=== PATIENT | female | born 1995 | race Caucasian/White ===

== ENCOUNTER → 2017-03-10 13:01 | Outpatient (CLI) | payer BC, SELFPAY ==
--- NOTE | 2017-03-10 13:05 | US_ITS ---
US OB /maternal detail: INDICATION: ITS.REASON: US OB Complete ORDERING PHYSICIAN: Haresh Nina MD PATIENT AGE: 21 years TECHNIQUE: ultrasound transabdominal scanning. COMPARISON: No previous relevant studies. FINDINGS: Single viable intrauterine gestation. breech position. Placenta: posterior placenta grade 1. There is average amount fluid. The cervix appears satisfactory. Closed and measuring 3.5 cm in length. Complete survey performed and was unremarkable on the submitted images as in PACS. No discrete anomalies identified on survey imaging by technologist. Active fetus. Three-vessel cord with satisfactory umbilical cord insertion. 4- chamber heart noted. Survey of brain & ventricles. Face and neck survey unremarkable. Diaphragm and chest views unremarkable. Abdomen: Both kidneys noted and unremarkable. Stomach noted and satisfactory. Spine: Survey of the spine satisfactory with no anomalies identified nor imaged. Both arms and legs noted. Amniotic Fluid: Adequate. Maternal adnexa: No significant findings. Measurements: Average ultrasound age 21w0d. Gestational Age 20w1d. Estimated due date by ultrasound age 0607/21/2017. Estimated weight 375 grams. This is 79th percentile based on last menstrual period BPD = 21w1d OFD = 21w5d HC = 20w5d AC = 20w6d FL = 20w6d Heart Rate = 150 Cerebellum = 20w0d Humerus = 21w4d HC/AC is 1.17 (1.09-1.26). CI is 77% (70-86%). FL/BPD is 68%. FL/AC is 22%. IMPRESSION: Single live fetus in breech presentation with average ultrasound age of 21 weeks and 0 days. No obvious anomalies. Posterior placenta. Please see above for detail.
== END ==
PROVIDERS: Family Provider Family Medicine; PCP Family Medicine; Visit Provider Nurse Practitioner Obstetrics & Gynecology
DX: Z36.0 Encounter for antenatal screening for chromosomal anomalies (principal)
CPT/HCPCS: 76811

== ENCOUNTER 2017-05-02 08:13 | Outpatient (CLI) | payer BC, SELFPAY | END 2017-05-02 10:30 | disposition home or self-care (01) | LOC: LAB 08:14 | PROVIDERS: Visit Provider Nurse Practitioner Obstetrics & Gynecology | DX: Z34.90 Encounter for supervision of normal pregnancy, unspecified, unspecified trimester (principal) | CPT/HCPCS: 36415; 96372; J2790 ==

== ENCOUNTER 2017-05-05 13:26 | Emergency (ER) | payer BC, SELFPAY ==
[2017-05-05 13:47] VITALS: BP 139/86; PULSE 88; RESP 20; TEMP 36.6; O2SAT 96; BMI 26.6
[2017-05-05 14:01] VITALS: BP 139/86; PULSE 88; RESP 20; TEMP 36.6
--- NOTE | 2017-05-05 14:13 | HMH.EDUTC ---
[facility] [place]ression: Bug bite Qualifiers: Encounter type: initial encounter Qualified Code(s): W57.XXXA - Bitten or stung by nonvenomous insect and other nonvenomous arthropods, initial encounter Disposition: Home, Self-Care Condition on Discharge: Good Instructions: DI for Insect Bites and Stings, Insect Bites and Stings (Alternative Therapy) Additional Instructions: Over the counter Bacitracin, or triple antibiotic ointment on area if needed Watch area for worsening and if you notice it begins to have worsening of redness, swelling streaks or fever or other signs of infection go straight to ER or Family doctor REturn if needed Follow up with OBGYN Referrals: Collin Lassiter MD [Primary Care Provider] - Time of Disposition: 14:23 Medical Decision Making - Medical Records Medical records reviewed: Yes: I reviewed the patient's medical records. - Juno Inquiry Pt receiving controlled substance: No Juno was queried for this patient: No Vital Signs: 05/05/17 13:47 05/05/17 14:01 Temperature 97.8 F 97.8 F Temperature Source Temporal Artery Scan Pulse Rate 88 Pulse Rate [Right] 88 Respiratory Rate 20 20 Blood Pressure 139/86 Blood Pressure [Right Arm] 139/86 Blood Pressure Mean [Right Arm] 103 Blood Pressure Source [Right Arm] Automatic Cuff Blood Pressure Position [Right Arm] Sitting 02 Sat by Pulse Oximetry 96 Oxygen Delivery Method Room Air [facility] [place] - General Stated complaint: bug bite on right arm 28 weeks Time Seen by Provider: 05/05/17 14:00 Mode of Arrival: Ambulatory Source of Information: Patient Limitations: No Limitations Description of Symptoms (Recalled from Triage Doc. by RN): STATES BUG BITE TO RIGHT ARM HEENT Symptoms (Recalled from RN notes): No Resp Symptoms (Recalled from RN notes): No Skin Symptoms (Recalled from RN notes): Yes MS Symptoms (Recalled from RN notes): No Functional Status (Recalled from RN notes): N - History of Present Illness Provider Complaint: Patient state that she is 28 weeks OB State that when she woke up this morning she noticed what looked like a bug bite on her right upper arm States that she was worried and wanted to come in and have it looked at because earlier it popped and pus ran out of it and now it is scabbed over - Related Data Previous Rx's Medication Instructions Recorded ferrous sulfate 325 mg (65 mg 325 mg PO DAILY #30 tab 02/24/17 iron) tablet 1 tab PO QDAY #30 each 02/24/17 vitamin,calcium,wdqdsyvq-fuun-mdplv acid tablet Allergies Allergy/AdvReac Type Severity Reaction Status Date / Time From GLUTEN (FOOD/DRUG) Allergy Intermediate VOMITING/DI Uncoded 01/25/17 15:03 ARRHEA - Worker's Comp Is this a Worker's Comp case?: No H History I have reviewed the patient's past medical history: Yes Comment: IBS, Celiac, Menstrual Pain, menorrahagia Other Surgeries: Yes: No Previous Surgery Amputation: No Fractures: No - Social History Smoking Status: Never smoker Alcohol Intake: never Substance Use Type: denies use - Psychiatric History Expresses thoughts of harming self/others: None Suicide Plan Description: No Plan Family Hx:: Hypertension, Heart Attack, Cancer Comment: Hx of Chemical dependency, arthritis ROS Obtained: Yes All systems reviewed & no additional complaints - Allergic/Immunologic Comments: Bug/spider bite on right upper arm Physical Exam - General General appearance: alert, in no apparent distress - Respiratory Respiratory exam: Present: normal lung sounds bilaterally. Absent: respiratory distress - Cardiovascular Cardiovascular exam: Present: regular rate, normal rhythm. Absent: JVD - Abdominal Exam Abdominal exam: Present: soft, normal bowel sounds. Absent: distention, tenderness, guarding - Expanded Upper Extremity Exam Right Shoulder exam: Present: full ROM, other (small area on right upper arm that appea
--- NOTE | 2017-05-05 14:17 | ED_ITS ---
[facility] – [place] Disposition Clinical Impression: Bug bite Qualifiers: Encounter type: initial encounter Qualified Code(s): W57.XXXA - Bitten or stung by nonvenomous insect and other nonvenomous arthropods, initial encounter Disposition: Home, Self-Care Condition on Discharge: Good Instructions: DI for Insect Bites and Stings, Insect Bites and Stings ( Alternative Therapy) Additional Instructions: Over the counter Bacitracin, or triple antibiotic ointment on area if needed Watch area for worsening and if you notice it begins to have worsening of redness, swelling streaks or fever or other signs of infection go straight to ER or Family doctor REturn if needed Follow up with OBGYN Referrals: Collin Lassiter MD [Primary Care Provider] - Time of Disposition: 14:23 Medical Decision Making - Medical Records Medical records reviewed: Yes: I reviewed the patient's medical records. - Juno Inquiry Pt receiving controlled substance: No Juno was queried for this patient: No Vital Signs: 05/05/17 13:47 05/05/17 14:01 Temperature 97.8 F 97.8 F Temperature Source Temporal Artery Scan Pulse Rate 88 Pulse Rate [Right] 88 Respiratory Rate 20 20 Blood Pressure 139/86 Blood Pressure [Right Arm] 139/86 Blood Pressure Mean [Right Arm] 103 Blood Pressure Source [Right Arm] Automatic Cuff Blood Pressure Position [Right Arm] Sitting 02 Sat by Pulse Oximetry 96 Oxygen Delivery Method Room Air [facility] [place] HPI - General Stated complaint: bug bite on right arm 28 weeks Time Seen by Provider: 05/05/17 14:00 Mode of Arrival: Ambulatory Source of Information: Patient Limitations: No Limitations Description of Symptoms (Recalled from Triage Doc. by RN): STATES BUG BITE TO RIGHT ARM HEENT Symptoms (Recalled from RN notes): No Resp Symptoms (Recalled from RN notes): No Skin Symptoms (Recalled from RN notes): Yes MS Symptoms (Recalled from RN notes): No Functional Status (Recalled from RN notes): N - History of Present Illness Provider Complaint: Patient state that she is 28 weeks OB State that when she woke up this morning she noticed what looked like a bug bite on her right upper arm States that she was worried and wanted to come in and have it looked at because earlier it popped and pus ran out of it and now it is scabbed over - Related Data Previous Rx's Medication Instructions Recorded ferrous sulfate 325 mg (65 mg 325 mg PO DAILY #30 tab 02/24/17 iron) tablet 1 tab PO QDAY #30 each 02/24/17 vitamin,calcium,npqcdqts-bhiz-mrnid acid tablet Allergies Allergy/AdvReac Type Severity Reaction Status Date / Time From GLUTEN (FOOD/DRUG) Allergy Intermediate VOMITING/DI Uncoded 01/25/17 15:03 ARRHEA - Worker's Comp Is this a Worker's Comp case?: No H History I have reviewed the patient's past medical history: Yes Comment: IBS, Celiac, Menstrual Pain, menorrahagia Other Surgeries: Yes: No Previous Surgery Amputation: No Fractures: No - Social History Smoking Status: Never smoker Alcohol Intake: never Substance Use Type: denies use - Psychiatric History Expresses thoughts of harming self/others: None Suicide Plan Description: No Plan Family Hx:: Hypertension, Heart Attack, Cancer Comment: Hx of Chemical dependency, arthritis ROS Obtained: Yes All
== END 2017-05-05 14:33 | disposition home or self-care (01) ==
PROVIDERS: Emergency Provider Nurse Practitioner; Family Provider Family Medicine; PCP Family Medicine
DX: S40.861A Insect bite (nonvenomous) of right upper arm, initial encounter (principal); W57.XXXA Bitten or stung by nonvenomous insect and other nonvenomous arthropods, initial encounter; Z3A.28 28 weeks gestation of pregnancy
CPT/HCPCS: 99201

== ENCOUNTER 2017-06-27 13:01 | Outpatient (CLI) | payer OTHER, SELFPAY ==
[2017-06-27 13:18] VITALS: BP 137/78; PULSE 90; RESP 16; TEMP 37.1; O2SAT 98; BMI 32.5
[2017-06-27 13:49] LABS: Appearance,Urine CLOUDY (Clear); Bilirubin,Urine Negative (Negative); Blood, Urine Negative (Negative); Color,Urine YELLOW (Yellow); Glucose,Urine (UA) Negative (Negative); Ketones,Urine Negative (Negative); Leukocyte Esterase,Urine 1+ (Negative); Microscopic, Urine URINE MICROSCOPIC (MICROSCOPIC); Nitrate,Urine Negative (Negative); Protein,Urine Negative (Negative); Urobilinogen,Urine 0.2 EU/dl (0.2)
[2017-06-27 14:00] LABS: Bacteria,Urine 4+ /lpf; Squamous Epithelial Cell,Urine 20-50 #/hpf (0-5); WBC,Urine 20-50 #/hpf (0-3)
--- NOTE | 2017-06-27 16:08 | HMH.ACPN2 ---
Internal Medicine - PN: Subj *Date: 06/27/17 *Time: 16:08 Interval history: She is a 21-year-old 1 para 0 who was 35+ weeks gestational age. She began having some lower abdominal pain when she woke up this morning. She is an otherwise healthy lady and has an otherwise healthy lady and has had an UNcomplicated to now. Is having a few contractions on the monitor and the nonstress test is reactive. Exam Vital signs and Labs for Last 24 Hours: Temp Pulse Resp BP Pulse Ox 98.7 F 90 16 137/78 98 06/27/17 13:18 06/27/17 13:18 06/27/17 13:18 06/27/17 13:18 06/27/17 13:18 Laboratory Results - last 24 hr 06/27/17 13:07: Urine Color Yellow, Urine Appearance Cloudy, Urine pH 6.0, Ur Specific [place] 1.010, Urine Protein Negative, Urine Glucose (UA) Negative, Urine Ketones Negative, Urine Blood Negative, Urine Nitrate Negative, Urine Bilirubin Negative, Urine Urobilinogen 0.2, Ur Leukocyte Esterase 1+ A, Urine WBC 20-50, Ur Squamous Epith Cells 20-50, Urine Bacteria 4+ I & O for Last 24 hours: Intake & Output 06/25/17 06/26/17 06/27/17 06/28/17 11:59 11:59 11:59 11:59 Weight 184 lb - Constitutional no acute distress - *Routine HEENT Exam Head: Present: normocephalic - *Routine Abdominal Exam Present: soft Assessment and Plan (1) False labor before 37 completed weeks of gestation Current visit: Yes Status: Acute Category: Medical Code(s): O47.00 - False labor before 37 completed weeks of gestation, unspecified trimester - Assessment and plan all Dx Assessment and Plan for all problems:: We gave her some fluids and Brethine and her contractions have settled. Her cervix is closed and 50% effaced. The presenting part is high. We have an appointment in 48 hours and we will also do an ultrasound to check position of this baby. It may be breech. We will see her in 48 hours. She will go home on bedrest.
== END 2017-06-27 16:13 | disposition home or self-care (01) ==
LOC: OBOUT 13:03 → OB 13:03
PROVIDERS: PCP Nurse Practitioner Obstetrics & Gynecology; Visit Provider Nurse Practitioner Obstetrics & Gynecology
DX: O26.93 Pregnancy related conditions, unspecified, third trimester (principal); Z3A.35 35 weeks gestation of pregnancy; R10.30 Lower abdominal pain, unspecified
CPT/HCPCS: 59025; 81001; 87086; 96360; 96372

== ENCOUNTER → 2017-06-30 18:02 | Outpatient (REF) | payer OTHER, SELFPAY | LOC: LAB 18:02 | PROVIDERS: Visit Provider Nurse Practitioner Obstetrics & Gynecology | DX: Z34.90 Encounter for supervision of normal pregnancy, unspecified, unspecified trimester (principal) | CPT/HCPCS: 86403 ==

== ENCOUNTER 2017-07-14 16:53 | Outpatient (CLI) | payer OTHER, SELFPAY ==
[2017-07-14 17:02] VITALS: BMI 30.9
[2017-07-14 17:27] VITALS: BP 138/85; PULSE 98; RESP 18; TEMP 36.9; O2SAT 99; BMI 34.2
[2017-07-14 18:02] LABS: Amphetamine/Metha Screen,Urine Negative ng/mL (<1000); Barbiturates Screen,Urine Negative ng/mL (<200); Benzodiazepines Screen,Urine Negative ng/mL (200); Cannabinoid Screen,Urine Negative ng/mL (<50); Cocaine Screen,Urine Negative ng/g (<300); Methadone Screen,Urine Negative ng/mL (<300); Opiate Screen,Urine Negative ng/mL (<300); Phencyclidine Screen,Urine Negative ng/mL (<25)
== END 2017-07-14 19:08 | disposition home or self-care (01) ==
LOC: OBOUT 16:54 → OB 16:55
PROVIDERS: PCP Nurse Practitioner Obstetrics & Gynecology; Visit Provider Obstetrics & Gynecology
DX: O60.03 Preterm labor without delivery, third trimester (principal); Z3A.38 38 weeks gestation of pregnancy
CPT/HCPCS: 59025; 80305; 96360

== ENCOUNTER → 2017-07-18 19:10 | Outpatient (CLI) | payer OTHER, SELFPAY ==
[2017-07-18 18:56] LABS: Amphetamine/Metha Screen,Urine Negative ng/mL (<1000); Barbiturates Screen,Urine Negative ng/mL (<200); Benzodiazepines Screen,Urine Negative ng/mL (200); Cannabinoid Screen,Urine Negative ng/mL (<50); Cocaine Screen,Urine Negative ng/g (<300); Methadone Screen,Urine Negative ng/mL (<300); Opiate Screen,Urine Negative ng/mL (<300); Phencyclidine Screen,Urine Negative ng/mL (<25)
== END ==
PROVIDERS: Visit Provider Nurse Practitioner Obstetrics & Gynecology
DX: Z34.90 Encounter for supervision of normal pregnancy, unspecified, unspecified trimester (principal)
CPT/HCPCS: 80305; 80307

== ENCOUNTER 2017-07-19 16:11 | Inpatient (IN) ==
[2017-07-19 16:46] LABS: Microscopic, Urine URINE MICROSCOPIC (MICROSCOPIC)
[2017-07-19 16:50] LABS: Basophils % 0.3 % (0.1-2.0); Eosinophils # 0.1 K/mm3 (0.0-0.4); Eosinophils % 1.1 % (0.1-12.0); Hematocrit 27.8 % (37.0-47.0); Hemoglobin 8.6 g/dL (12.2-16.2); Lymphocytes # 1.7 K/mm3 (0.7-4.5); Lymphocytes % 17.5 K/mm3 (10-50); Mean Corpuscular HGB Conc 30.9 g/dL (31.8-35.4); Mean Corpuscular Volume 80.9 fl (81-99); Mean Platelet Volume 9.3 fl (7.4-10.4); Monocytes # 0.7 K/mm3 (0.1-1.0); Monocytes % 6.7 % (1.7-9.3); Neutrophils # 7.2 K/mm3 (1.8-7.8); Neutrophils % 74.4 % (37.0-80.0); Platelet Count 262 K/mm3 (142-424); Red Blood Count 3.44 M/mm3 (4.20-5.40); Red Cell Distribution Width 15.1 % (11.5-17.5); White Blood Count 9.7 K/mm3 (4.5-13.0)
--- NOTE | 2017-07-19 17:18 | History & Physical Report ---
OB - H&P: HPI Antepartum - History of Present Illness Chief complaint: Elevated blood pressure History of present illness: She is a 21-year-old 1 para 0 who is 38 and 6 weeks gestational age. She was seen in my office yesterday with increased blood pressure. As result of that we plan to deliver her. - History of Present Criteria for establishing EDC:: LMP confirmed by 1st trimester US care: good care Ultrasounds: normal 1st trimester US, normal mid trimester US Obstetrical complications: preeclampsia Medical complications: none [facility] History I have reviewed the patient's past medical history: Yes Medical History: Denies:: Cancer, Diabetes Mellitus Type 1, Diabetes Mellitus Type 2, MRSA Other Surgeries: Yes: No Previous Surgery. No: Amputation: No Fractures: No - *Social History Educational Level: Completed GED/General Educational Development Smoking Status: Former smoker #Yrs smoked (if former smoker): 1 Smoking End Date: 2016 Alcohol Intake: never Substance Use Type: denies use Occupational Status: other Housing: house Household Members: family - Psychiatric History Expresses thoughts of harming self/others: None Suicide Plan Description: No Plan *Family Hx:: Cancer Para: 0 Review of Systems - Review of Systems Review of systems:: pertinent systems reviewed and negative unless documented below Meds Home Medications Medication Instructions Recorded Confirmed Type Ferrous Sulfate [Ferrous Sulfate 325 mg PO DAILY 06/27/17 07/19/17 History 325mg Tablet] Vit Calc,Iron,Folic [Kpn] 1 tab PO QDAY 06/27/17 07/19/17 History Allergies Allergy/AdvReac Type Severity Reaction Status Date / Time gluten Allergy Vomiting Verified 07/18/17 16:21 OB - H&P: Exam - Physical Exam Vital signs: Temp Pulse Resp BP Pulse Ox 98.4 F 82 18 135/90 98 07/19/17 16:32 07/19/17 16:32 07/19/17 16:32 07/19/17 16:32 07/19/17 16:32 - Constitutional no acute distress - Routine HEENT Exam Head: Present: normocephalic - Routine Neck Exam Present: supple - Routine Exam Comments: Her cervix is 1 cm 75% and -1. She is having regular contractions so we will not insert Cervidil at this point in time. We will plan to start oxytocin in the morning. - Routine Psychiatric Exam Present: normal affect OB - Results - Labs Labs: Short CBC 07/19/17 Range/Units 16:30 WBC 9.7 (4.5-13.0) K/mm3 Hgb 8.6 L (12.2-16.2) g/dL Hct 27.8 L (37.0-47.0) % Plt Count 262 (142-424) K/mm3 OB - A/P Antepartum (1) induced hypertension, antepartum Current visit: Yes Status: Acute (2) Rh negative status during Problem details: Rhogam 05/02/17 Current visit: No Status: Acute - Additional Plan Planning to breastfeed?: Yes Plan: induction Additional Information:: She is admitted with slightly elevated blood pressure. We will start oxytocin in the morning. We will plan to deliver her tomorrow.
[2017-07-19 17:36] LABS: Appearance,Urine SL CLOUDY (Clear); Bilirubin,Urine Negative (Negative); Blood, Urine Negative (Negative); Color,Urine YELLOW (Yellow); Glucose,Urine (UA) Negative (Negative); Ketones,Urine Negative (Negative); Leukocyte Esterase,Urine 1+ (Negative); Protein,Urine Negative (Negative); Urobilinogen,Urine 0.2 EU/dl (0.2)
[2017-07-19 17:47] LABS: Bacteria,Urine 4+ /lpf; WBC,Urine 20-50 #/hpf (0-3)
--- NOTE | 2017-07-20 07:26 | Progress Note ---
Labor Note - Subjective: Date: 07/20/17 Time: 07:25 regular contraction - Objective: NST:: Reactive Contractions:: every 2-3 minutes Cervical Dilation:: 2 Effacement:: 50% Station: -1 Membranes: articially ruptured Comment:: Clear fluid - Fetus: Monitoring?: Yes monitoring type:: External - Assessment: Labor progressing?: Yes Cephalopelvic disproportion?: No Patient Problems: All Active Problems induced hypertension, antepartum (Acute) Bug bite (Acute) False labor before 37 completed weeks of gestation (Acute) Rh negative status during (Acute) Positive urine drug screen (Acute) Group B streptococcal carriage complicating (Acute) (Acute) - Plan: Anesthesia for epidural?: No Continue to labor down?: Yes Plan for ?: No Continue to monitor?: Yes Start pushing?: No Comment:: I ruptured her membranes and there was clear fluid. She has changed her cervix overnight. She is now 2 cm. The cervix is very soft.
--- NOTE | 2017-07-20 08:24 | Progress Note ---
[facility] Anesthesia Checklist - Patient Identification Patient Identification: Arm Band, Verbal (Name & ) - Structural Data Admitted From: Inpatient Planned Operative Procedure/s: labor epidural Consent for Planned Operative Procedure(s) Verified: Yes - Chart Verification Results Verified: CBC - Additional verifications Patient : Yes Anesthesia Reactions: No Hx Blood Transfusions: No Blood Transfusion Reaction: No Cephalosporin Allergy: No Previous Colonoscopy: No - Cardiovascular Assessment Heart Sounds: S1 & S2 Pulse Strength: Baseline Pulse Rhythm: Regular - Airway Assessment C-Spine Mobility Assessed: Yes TMJ Mobility Assessed: Yes Dentition: Good Dentition - Neurological Assessment Level of Consciousness: Awake, Alert, Appropriate Hx Seizures: No Numbness or tingling in extremities: No - Anesthesia Plan Anesthesia Risk discussed: Yes Anesthesia Plan: Verified Anesthesia Type: Epidural [facility] Anesthesia HX I have reviewed the patient's past medical history: Yes Medical History: Denies:: Cancer, Diabetes Mellitus Type 1, Diabetes Mellitus Type 2, MRSA Other Surgeries: Yes: No Previous Surgery. No: Amputation: No Fractures: No *Family Hx:: Cancer
[2017-07-20 08:47] LABS: Amphetamine/Metha Screen,Urine Negative ng/mL (<1000); Barbiturates Screen,Urine Negative ng/mL (<200); Benzodiazepines Screen,Urine Negative ng/mL (200); Cannabinoid Screen,Urine Negative ng/mL (<50); Cocaine Screen,Urine Negative ng/g (<300); Methadone Screen,Urine Negative ng/mL (<300); Opiate Screen,Urine Negative ng/mL (<300); Phencyclidine Screen,Urine Negative ng/mL (<25)
--- NOTE | 2017-07-20 09:46 | Progress Note ---
Labor Note - Subjective: Date: 07/20/17 Time: 09:45 regular contraction - Objective: NST:: Reactive Contractions:: every 2-3 minutes Cervical Dilation:: 2 Effacement:: 75% Station: -2 Membranes: articially ruptured - Fetus: Monitoring?: Yes monitoring type:: Internal and External Comment:: I inserted and IUPC. - Assessment: Labor progressing?: Yes Cephalopelvic disproportion?: No Patient Problems: All Active Problems induced hypertension, antepartum (Acute) Bug bite (Acute) False labor before 37 completed weeks of gestation (Acute) Rh negative status during (Acute) Positive urine drug screen (Acute) Group B streptococcal carriage complicating (Acute) (Acute) - Plan: Anesthesia for epidural?: Yes Continue to labor down?: Yes Plan for ?: No Continue to monitor?: Yes Start pushing?: No
--- NOTE | 2017-07-20 13:37 | Progress Note ---
Labor Note - Subjective: Date: 07/20/17 Time: 13:36 regular contraction - Objective: NST:: Reactive Contractions:: every 2-3 minutes Cervical Dilation:: 3 Effacement:: 90% Station: -1 Membranes: articially ruptured - Fetus: Monitoring?: Yes monitoring type:: Internal and External - Assessment: Labor progressing?: Yes Cephalopelvic disproportion?: No Patient Problems: All Active Problems induced hypertension, antepartum (Acute) Bug bite (Acute) False labor before 37 completed weeks of gestation (Acute) Rh negative status during (Acute) Positive urine drug screen (Acute) Group B streptococcal carriage complicating (Acute) (Acute) - Plan: Anesthesia for epidural?: Yes Continue to labor down?: Yes Plan for ?: No Continue to monitor?: Yes Start pushing?: No
--- NOTE | 2017-07-20 15:49 | Progress Note ---
Labor Note - Subjective: Date: 07/20/17 Time: 15:47 regular contraction - Objective: NST:: Reactive Contractions:: every 2-3 minutes Cervical Dilation:: 3 Effacement:: 90% Station: -1 Membranes: articially ruptured - Fetus: Monitoring?: Yes monitoring type:: Internal and External - Assessment: Labor progressing?: No Cephalopelvic disproportion?: No Patient Problems: All Active Problems induced hypertension, antepartum (Acute) Bug bite (Acute) False labor before 37 completed weeks of gestation (Acute) Rh negative status during (Acute) Positive urine drug screen (Acute) Group B streptococcal carriage complicating (Acute) (Acute) - Plan: Anesthesia for epidural?: Yes Continue to labor down?: Yes Plan for ?: No Continue to monitor?: Yes Start pushing?: No Comment:: She really has not changed her cervix in the last couple of hours despite regular contractions. We will continue to see how she does over the next few hours. If she does not change her cervix then we will consider a .
--- NOTE | 2017-07-20 18:01 | Progress Note ---
Labor Note - Subjective: Date: 07/20/17 Time: 18:00 regular contraction - Objective: NST:: Reactive Contractions:: every 2-3 minutes Cervical Dilation:: 3-4 Effacement:: 90% Station: -1 Membranes: articially ruptured - Fetus: Monitoring?: Yes monitoring type:: Internal and External - Assessment: Labor progressing?: Yes Cephalopelvic disproportion?: No Patient Problems: All Active Problems induced hypertension, antepartum (Acute) Bug bite (Acute) False labor before 37 completed weeks of gestation (Acute) Rh negative status during (Acute) Positive urine drug screen (Acute) Group B streptococcal carriage complicating (Acute) (Acute) - Plan: Anesthesia for epidural?: Yes Continue to labor down?: Yes Continue to monitor?: Yes Start pushing?: No Comment:: She has changed her cervix slightly. We will see how she does over the next couple of hours. If she does not change her cervix we will go ahead with a C- section.
--- NOTE | 2017-07-20 20:22 | Progress Note ---
Labor Note - Subjective: Date: 07/20/17 Time: 20:21 regular contraction - Objective: NST:: Reactive Contractions:: every 2-3 minutes Cervical Dilation:: 3 Effacement:: 90% Station: -1 Membranes: articially ruptured - Fetus: Monitoring?: Yes monitoring type:: Internal and External - Assessment: Labor progressing?: No Cephalopelvic disproportion?: Yes Patient Problems: All Active Problems induced hypertension, antepartum (Acute) Bug bite (Acute) False labor before 37 completed weeks of gestation (Acute) Rh negative status during (Acute) Positive urine drug screen (Acute) Group B streptococcal carriage complicating (Acute) (Acute) - Plan: Anesthesia for epidural?: Yes Continue to labor down?: No Plan for ?: Yes Continue to monitor?: Yes Start pushing?: No Comment:: She really has not progressed all afternoon. She continues to be 3 cm 90% and station -1. As result of that we will go ahead with a primary lower segment transverse section. I discussed the risks of surgery with the patient and her boyfriend that includes bleeding, infection, injuries to the bowel and bladder. We discussed the rare risk of DVT and the need for DVT prophylaxis. All questions were answered and consents were signed.
--- NOTE | 2017-07-20 21:51 | Operative Note ---
Date of procedure: 07/20/17 Pre-op Diagnosis:: Mild -induced hypertension, pelvic disproportion, teenage Post-op Diagnosis:: Mild -induced hypertension, pelvic disproportion, teenage , uterine atony Procedure performed:: Primary lower segment transverse section. B-Peña suture Surgeon:: Haresh Nina MD Head Esthetician(s):: Dr. Palacio REHAB/PRE VOCATIONAL COUNSELOR:: Satish Velasquez Anesthesia: epidural Estimated blood loss (mL): 600 Clinical Note:: She is a 21-year-old 1 para 0 who is 38 and 6 weeks gestational age. She was seen in my office and had increased blood pressure in the 140/90 range. As result of that we elected to induce her labor. She was started on IV oxytocin and had her membranes ruptured. She really failed to progress beyond 3 cm. She was 3 cm all day. After having discussed the risks and benefits we elected to perform a primary lower segment transverse section. Operative findings:: She delivered a liveborn female child at 4 in the evening of July 20, 2017. The baby weighed 8 lbs. 11 oz. and had Apgars of 9 at 1 minute and 9 at 5 minutes. Ovaries and tubes appeared normal. Operative note:: She was taken to the operating room where epidural anesthesia was found be adequate. She was prepped and draped in normal sterile fashion in the supine position with a leftward tilt. A Hicks catheter was in the bladder. A Pfannenstiel skin incision was made with knife then carried through to the underlying layer of fascia with cautery. The fascia was opened in the midline with cautery and extended laterally using Hayes scissors. [place] clamps were applied to the superior aspect of the fascial incision which was tented up and the underlying rectus muscles dissected off using cautery. The Lucero clamps were then applied to the inferior aspect of the fascial incision which in a similar fashion was tented up and the underlying rectus muscles dissected off using cautery. The rectus muscles were then in the midline, the peritoneum identified, and entered sharply with Metzenbaum scissors. This incision was then extended superiorly and inferiorly with cautery. We had good visualization of the bladder inferiorly. The bladder peritoneum was then opened in the midline and extended laterally using Metzenbaum scissors. A bladder flap was created digitally. The lower blade of the Gilda was inserted so as to push the bladder out of the way. Transverse incision was made through the uterine muscle to the amnion. This incision was then extended laterally using fingers traction. The amnion was entered sharply with knife. The 's head was then delivered atraumatically. This was followed by the anterior shoulder and the rest of the infant's body atraumatically. The oropharynx and nasopharynx were bulb suctioned. The infant was then handed off to Dr. Zarate who assigned Apgars of 9 at 1 minute and 9 at 5 minutes. We then obtained cord blood as well as cord pH. Using gentle traction on the cord and countertraction on the fundus I was able to easily deliver the placenta intact. It had a normal three-vessel cord. The uterus was then cleared of clots and debris and exteriorized from the abdominal cavity. The uterine incision was then closed using running 0 Vicryl suture in a locked fashion. A second layer of the same suture was used to imbricate the first layer. The uterus continued to be place a B Peña suture. The suture was placed anteriorly and then carried over the fundus of the uterus posteriorly. I took 2 bites posteriorly and then returned over the fundus of the uterus anteriorly and took another bite here. The suture was cinched down and tied. The bladder peritoneum was then closed using running 2-0 Vicryl suture in a locked fashion. The gutters and cul-de-sac were then cleared of clots and debris and the uterus was returned the abdominal cavity. Once again hemostasis was assured. The peritoneum was grasped with [place] clamps and closed using running 2-0 Vicryl suture. The rectus muscles were then reapproximated using running 0 Vicryl suture. The fascia was closed using running #1 Vicryl suture. The subcutaneous tissues were then irrigated with warm water followed by closure Katiuska's fascia using running 2-0 Monocryl suture. The skin was closed with lara. Sterile dressings were applied. She tolerated the procedure well and was taken to the recovery room in excellent condition. All sponges minute and needle counts were correct. Estimate a blood loss was approximately 600 mL. Condition: stable Disposition: PACU Specimens:: Products of conception Complications:: None
--- NOTE | 2017-07-20 22:07 | Progress Note ---
[facility] Anesthesia Record Part I Intake, IV Amount: 2,000 Estimated blood loss (mL): 600 Urine output (mL): 1,000 Blood Pressure: 141/81 SaO2: 100 Pulse Rate: 150 Respiratory Rate: 16 Temperature: 99.1 F Patient is:: Drowsy, Stable Stable to PACU at:: 21:45
--- NOTE | 2017-07-20 22:08 | Progress Note ---
[facility] Anesthesia Record Part II Discharge Time: 22:15 Destination: Obstetric PACU nurse assessment reviewed?: Yes Patient Condition:: Good Anesthesia Complications:: None
[2017-07-21 06:03] LABS: Basophils % 0.3 % (0.1-2.0); Eosinophils # 0.1 K/mm3 (0.0-0.4); Eosinophils % 0.4 % (0.1-12.0); Lymphocytes # 1.5 K/mm3 (0.7-4.5); Lymphocytes % 11.5 K/mm3 (10-50); Mean Corpuscular HGB Conc 29.9 g/dL (31.8-35.4); Mean Corpuscular Hemoglobin 24.6 pg (27.0-31.2); Mean Corpuscular Volume 82.5 fl (81-99); Mean Platelet Volume 9.1 fl (7.4-10.4); Monocytes # 0.6 K/mm3 (0.1-1.0); Monocytes % 4.5 % (1.7-9.3); Neutrophils # 10.7 K/mm3 (1.8-7.8); Neutrophils % 83.3 % (37.0-80.0); Platelet Count 232 K/mm3 (142-424); Red Blood Count 2.72 M/mm3 (4.20-5.40); Red Cell Distribution Width 15.3 % (11.5-17.5); White Blood Count 12.8 K/mm3 (4.5-13.0)
[2017-07-21 06:07] LABS: Hematocrit 22.5 % (37.0-47.0); Hemoglobin 6.7 g/dL (12.2-16.2)
--- NOTE | 2017-07-21 07:39 | Pharmacy Consult Notes ---
[facility] Pharmacy VTE Monitoring - Patient Demographics Admission date: 07/19/17 Report Date: 07/21/17 Time: 07:39 Allergies/Adverse Reactions: Patient Allergies gluten Allergy (Verified 07/18/17 16:21) Vomiting Height: 1.6 m Weight: 87.543 kg Patient Problems: Current Active Problems induced hypertension, antepartum (Acute) - VTE Risk Labs: VTE Related Lab Results Hgb 6.7 g/dL (12.2-16.2) L* 07/21/17 05:20 Hct 22.5 % (37.0-47.0) L* 07/21/17 05:20 Plt Count 232 K/mm3 (142-424) 07/21/17 05:20 - Prophylaxis VTE Prophylaxis Ordered?: Yes Types of VTE Prophylaxis: IPCS Knee High Location of Applied Device: Bilateral Lower Extremeties - VTE Diagnosis Confirmed Treatment or plan recommended: Continue Current Treatment
--- NOTE | 2017-07-21 08:17 | Progress Note ---
Internal Medicine - PN: Subj *Date: 07/21/17 *Time: 08:14 Interval history: She is doing well this morning. She is quite pale looking. Her hemoglobin is 6.7. She started out with a low hemoglobin. She denies any light headedness or weakness. Exam Vital signs and Labs for Last 24 Hours: Temp Pulse Resp BP Pulse Ox 98.6 F 98 H 20 128/80 99 07/21/17 04:00 07/21/17 04:00 07/21/17 04:00 07/21/17 04:00 07/20/17 22:15 Laboratory Results - last 24 hr 07/19/17 16:17: Urine Opiates Screen Negative, Ur Barbituates Screen Negative, Ur Phencyclidine Scrn Negative, Ur Amphetamines Screen Negative, U Methamphetamines Scrn Negative, U Benzodiazepines Scrn Negative, Urine Cocaine Screen Negative, U Marijuana (THC) Screen Negative 07/19/17 16:30: Antibody Identification See Comments 07/21/17 05:20: Blood Type A Negative, Antibody Screen Negative, Screen Negative, Baby's Rh Status Positive 07/21/17 05:20: WBC 12.8 D, RBC 2.72 L, Hgb 6.7 L*, Hct 22.5 L*, MCV 82.5, MCH 24.6 L, MCHC 29.9 L, RDW 15.3, Plt Count 232, MPV 9.1, Neut % (Auto) 83.3 H, Lymph % (Auto) 11.5, [place] % (Auto) 4.5, Eos % (Auto) 0.4, Baso % (Auto) 0.3, Neut # (Auto) 10.7 H, Lymph # (Auto) 1.5, [place] # (Auto) 0.6, Eos # (Auto) 0.1, Baso # (Auto) 0.0 07/21/17 07:11: Rhogam Infusion Rhogam release I & O for Last 24 hours: Intake & Output 07/18/17 07/19/17 07/20/17 07/21/17 11:59 11:59 11:59 11:59 Intake Total 2000 / 2000 Output Total 1200 / 1200 Balance 800 / 800 Weight 193 lb 193 lb Microbiology Reports for the Last 24 Hours: Microbiology 07/19/17 16:17 Urine,Clean Catch Urine Culture - Preliminary NO GROWTH AFTER 24 HOURS - Constitutional no acute distress Assessment and Plan (1) induced hypertension, antepartum Current visit: Yes Status: Acute Category: Medical Code(s): O13.9 - Gestational [-induced] hypertension without significant proteinuria, unspecified trimester (2) Rh negative status during Problem details: Rhogam 05/02/17 Current visit: No Status: Acute Category: Medical Code(s): O09.899 - Supervision of other high risk pregnancies, unspecified trimester; Z67.91 - Unspecified blood type, Rh negative (3) Anemia Current visit: Yes Status: Acute Category: Medical Code(s): D64.9 - Anemia , unspecified (4) Fetopelvic disproportion, delivered Current visit: Yes Status: Acute Category: Medical Code(s): O33.9 - Maternal care for disproportion, unspecified - Assessment and plan all Dx Assessment and Plan for all problems:: She is anemic and we will go ahead and transfuse her 2 units of blood. Will start iron tablets as well twice daily. We will plan to send her home in 48 hours.
[2017-07-21 16:12] LABS: Hematocrit 24.4 % (37.0-47.0)
[2017-07-21 16:21] LABS: Hemoglobin 8.9 g/dL (12.2-16.2)
--- NOTE | 2017-07-22 09:51 | Progress Note ---
Internal Medicine - PN: Subj *Date: 07/22/17 *Time: 09:49 Interval history: She continues to do very well. She is eating and drinking and ambulating. She is breast-feeding. Her lochia is normal. She had a transfusion of 2 units yesterday and her hemoglobin is 8.9. She feels much better. Exam Vital signs and Labs for Last 24 Hours: Temp Pulse Resp BP Pulse Ox 98.3 F 100 H 20 121/68 99 07/22/17 04:00 07/22/17 04:00 07/22/17 04:00 07/22/17 04:00 07/21/17 16:00 Laboratory Results - last 24 hr 07/21/17 05:20: Blood Type A Negative, Antibody Screen Negative, Screen Negative, Baby's Rh Status Positive, Crossmatch (AHG) See Detail 07/21/17 16:05: Hgb 8.9 L D, Hct 24.4 L I & O for Last 24 hours: Intake & Output 07/19/17 07/20/17 07/21/17 07/22/17 11:59 11:59 11:59 11:59 Intake Total 1999 Output Total 1200 / 1200 Balance 800 / 800 Weight 193 lb 193 lb Microbiology Reports for the Last 24 Hours: Microbiology 07/19/17 16:17 Urine,Clean Catch Urine Culture - Final NO GROWTH AFTER 48 HOURS - Constitutional no acute distress Assessment and Plan (1) induced hypertension, antepartum Current visit: Yes Status: Acute Category: Medical Code(s): O13.9 - Gestational [-induced] hypertension without significant proteinuria, unspecified trimester (2) Rh negative status during Problem details: Rhogam 05/02/17 Current visit: No Status: Acute Category: Medical Code(s): O09.899 - Supervision of other high risk pregnancies, unspecified trimester; Z67.91 - Unspecified blood type, Rh negative (3) Anemia Current visit: Yes Status: Acute Category: Medical Code(s): D64.9 - Anemia , unspecified (4) Fetopelvic disproportion, delivered Current visit: Yes Status: Acute Category: Medical Code(s): O33.9 - Maternal care for disproportion, unspecified - Assessment and plan all Dx Assessment and Plan for all problems:: She continues to do very well. We will plan to send her home tomorrow.
--- NOTE | 2017-07-23 10:55 | Discharge Summary ---
General - General Admission date:: 07/19/17 Discharge date: 07/23/17 HPI HPI: She is a 21-year-old 1 now para 1 who is 38 and 6 weeks gestational age. She had elevation in her blood pressure and as result of that was brought in for induction labor at term. Hospital Course Hospital Course: Initially we had admitted her with increased blood pressure and we were going to put in Cervidil overnight but she was having regular contractions. The following morning we started IV oxytocin and ruptured her membranes. She really failed to progress beyond 3 cm. As result of that pelvic disproportion was diagnosed. She was then taken for a primary lower segment transverse section. On the evening of July 20, 2017 she delivered a liveborn female child. The baby weighed 8 lbs. 11 oz. and was 20 inches long. She had Apgars of 9 at 1 and 9 at 5 minutes. She is done well and has remained afebrile throughout her hospitalization. She is eating and drinking and ambulating. She is breast- feeding. She is A Rh- blood and did receive RhoGam. She is rubella immune and was group A streptococcus positive. She did receive IV antibiotics while in labor. She is discharged home to follow-up with me in approximately 2 weeks time. We have given her a prescription for Percocet 5/325, 30 tablets and she will also take Motrin. She will take her vitamins and iron. She did have a low hemoglobin prior to her surgery and had a drop below 7 and as result of that she received 2 units of blood. She is doing better now. She denies any shortness of breath or dizziness. Objective Vital signs: Temp Pulse Resp BP Pulse Ox 98.2 F 75 16 140/84 97 07/23/17 08:00 07/23/17 08:00 07/23/17 08:00 07/23/17 08:00 07/23/17 08:00 no acute distress DS: Diagnosis - Discharge Diagnosis (1) induced hypertension, antepartum Status: Acute (2) Rh negative status during Status: Acute Problem details: Rhogam 05/02/17 (3) Anemia Status: Acute (4) Fetopelvic disproportion, delivered Status: Acute Discharge Plan - Patient Discharge Instructions ACTIVITY: No heavy lifting DIET: continue same diet Additional Instructions: NO DRIVING FOR 2 WEEKS NO HEAVY LIFTING NOTHING IN VAGINA FOR 6 W[address]KS FOLLOW-UP WITH DR. FARNSWORTH IN 2 WEEKS Patient Instructions: How to Care for a Surgical Wound, Depression, [facility] Post Discharge Instructions - Follow up Plan Disposition: Home, Self-Usp Medications: Home Medications Medication Instructions Recorded Confirmed Type Ferrous Sulfate [Ferrous Sulfate 325 mg PO DAILY 06/27/17 07/19/17 History 325mg Tablet] Vit Calc,Iron,Folic [Kpn] 1 tab PO DAILY 06/27/17 07/20/17 History Prescriptions/Medication Reconciliation: New Oxycodone HCl/Acetaminophen [Percocet 5/325mg tablet] 1 - 2 tab PO Q4- 6H PRN #30 tab PRN Reason: Severe Pain Continue Ferrous Sulfate [Ferrous Sulfate 325mg Tablet] 325 mg PO DAILY Vit Calc,Iron,Folic [Kpn] 1 tab PO DAILY
== END 2017-07-23 11:50 | disposition home or self-care (01) ==
LOC: OB 16:11
PROVIDERS: ADMIT Nurse Practitioner Obstetrics & Gynecology; ATTEND Nurse Practitioner Obstetrics & Gynecology

== ENCOUNTER 2020-09-02 09:33 | Emergency (ER) | payer MEDICAID, SELFPAY ==
[2020-09-02 09:34] VITALS: BP 148/96; PULSE 100; RESP 16; TEMP 37; O2SAT 98; BMI 23.0
[2020-09-02 09:47] VITALS: BP 139/87; BP 151/92; PULSE 88; PULSE 97
[2020-09-02 10:02] LABS: Basophils % 0.5 % (0.1-2.0); Eosinophils # 0.2 K/mm3 (0.0-0.4); Eosinophils % 2.3 % (0.1-12.0); Hematocrit 39.8 % (37.0-47.0); Hemoglobin 12.7 g/dL (12.2-16.2); Lymphocytes # 2.1 K/mm3 (0.7-4.5); Lymphocytes % 24.5 % (10-50); Mean Corpuscular Hemoglobin 29.9 pg (27.0-31.2); Mean Corpuscular Volume 93.5 fl (81-99); Mean Platelet Volume 10.1 fl (7.4-10.4); Monocytes # 0.5 K/mm3 (0.1-1.0); Monocytes % 5.3 % (1.7-9.3); Neutrophils # 5.8 K/mm3 (1.8-7.8); Neutrophils % 67.4 % (37.0-80.0); Platelet Count 217 K/mm3 (142-424); Red Blood Count 4.26 M/mm3 (4.20-5.40); Red Cell Distribution Width 13.3 % (11.5-17.5); White Blood Count 8.7 K/mm3 (4.8-10.8)
[2020-09-02 10:03] LABS: Chloride 107 mmol/L (98-107)
[2020-09-02 10:06] LABS: Alanine Aminotransferase 13 U/L (12-78); Albumin Level 4.7 g/dl (3.5-5.0); Albumin/Globulin Ratio 1.7 (1.1-1.8); Alkaline Phosphatase 75 U/L (38-126); Anion Gap 13.6 mEq/L (5-15); Aspartate Amino Transferase 20 U/L (14-36); Bilirubin,Total 0.4 mg/dl (0.2-1.3); Blood Urea Nitrogen 7 mg/dl (7-17); Calcium 9.2 mg/dl (8.4-10.2); Carbon Dioxide 25 mmol/L (22.0-30.0); Creatinine Clearance Estimated 103 mL/min (50-200); Estimated Glomerular Filt Rate 90 ml/min (>60); GFR (African American) 109 ML/MIN (>60); Globulin 2.7 g/dL (1.3-3.2); Glucose 106 mg/dl (74-100); Potassium 3.6 mmoL/L (3.5-5.1); Sodium 142 mmol/L (136-145); Total Protein,Serum 7.4 g/dl (6.3-8.2)
[2020-09-02 10:23] LABS: INR 0.93 (0.9-1.1)
--- NOTE | 2020-09-02 10:41 | HMH.EDGENADL ---
ED Disposition Clinical Impression: Rectal bleeding Disposition: Home, Self-Care Condition on Discharge: Good Instructions: DI for Rectal Bleeding Additional Instructions: Increase oral hydration and return to the ED for any new or worsening symptoms. Follow-up with Dr. Sheffield with gastroenterology. Prescriptions: Multivitamin with Iron [Multivitamins with Iron] 1 each PO DAILY #30 tab Transmission Status: Pending to [facility] #[id number] Referrals: Vida Sky APRN [Primary Care Provider] - Janak Sheffield MD [Staff Physician] - Time of Disposition: 11:26 - Critical Care Critical Care Time: No Attestation: On 09/02/20, the high probability of a clinically significant, sudden or life threatening deterioration of the following system(s) required my full and direct attention, intervention and personal management. The time I documented below is in addition to time spent performing reported procedures but includes the following listed in this critical care notation. Medical Decision Making - Medical Records Medical records reviewed: Yes: I reviewed the patient's medical records. - [place] Inquiry Pt receiving controlled substance: No Vital Signs: 09/02/20 09:34 09/02/20 09:47 09/02/20 10:43 Temperature 98.6 F Temperature Source Oral Pulse Rate 64 Pulse Rate [Orthostatic Lying] 97 H Pulse Rate [Orthostatic Standing] 88 Pulse Rate [Radial] 100 H Respiratory Rate 16 18 Blood Pressure 117/67 Blood Pressure [Orthostatic Lying Right Arm] 139/87 Blood Pressure [Orthostatic Standing] 151/92 H Blood Pressure [Right Arm] 148/96 H Blood Pressure Mean [Right Arm] 113 Blood Pressure Position [Right Arm] Sitting 02 Sat by Pulse Oximetry 98 100 Oxygen Delivery Method Room Air - Lab Data Lab Results 09/02/20 09:48: WBC 8.7, RBC 4.26, Hgb 12.7, Hct 39.8, MCV 93.5, MCH 29.9, MCHC 32.0, RDW 13.3, Plt Count 217, MPV 10.1, Neut % (Auto) 67.4, Lymph % (Auto) 24.5, [place] % (Auto) 5.3, Eos % (Auto) 2.3, Baso % (Auto) 0.5, Neut # (Auto) 5.8, Lymph # (Auto) 2.1, [place] # (Auto) 0.5, Eos # (Auto) 0.2, Baso # (Auto) 0.0 09/02/20 09:48: PT 11.0, INR 0.93 09/02/20 09:48: Sodium 142, Potassium 3.6, Chloride 107, Carbon Dioxide 25, Anion Gap 13.6, BUN 7, Creatinine 0.80, Estimated Creat Clear 103, Estimated GFR 90, Est GFR ( Amer) 109, Glucose 106 H, Calcium 9.2, Total Bilirubin 0.4, AST 20, ALT 13, Alkaline Phosphatase 75, Total Protein 7.4, Albumin 4.7, Globulin 2.7, Albumin/Globulin Ratio 1.7 Result diagrams: 09/02/20 09:48 09/02/20 09:48 Orders (Tests/Meds): ED MEDICATIONS Discontinued Medications Generic Name Dose Route Start Last Admin Trade Name Freq PRN Reason Stop Dose Admin Sodium Chloride 1,000 mls @ 999 mls/hr 09/02/20 10:00 09/02/20 10:14 Sod Chlor 0.9% 1000ml Bag IV 09/02/20 11:00 999 mls/hr .Q1H1M RIMMA Administration Medical Decision Narrative: 24-year-old female presents with 5 months of intermittent dark and bright red blood per rectum that is typically on the stool and in the bowl rather than the stool being a different color. Patient has a history of IBS no concern that she is aware of 4 inflammatory bowel disease. She does have a history of celiac's. She is not having abdominal pain at this time the difference today is that she became in due to a near syncopal type episode while sitting on the toilet trying to have a bowel movement. She is asymptomatic from that standpoint at this time. EKG was reviewed demonstrating no acute arrhythmias or abnormalities. She was given IV fluid bolus 1 L. Her hemoglobin is greater than 12 and she is not symptomatic consistent with anemia. She had a picture which is consistent with hematochezia rather than melena. Patient would like to defer the rectal exam which I think is appropriate based on the timing of symptoms and the chronic nature. Believe that she had vasovagal syncope today as her anemia is
[2020-09-02 10:43] VITALS: BP 117/67; PULSE 64; RESP 18; O2SAT 100
--- NOTE | 2020-09-02 11:35 | ECG_ITS ---
APPROVED REPORT Exam: Resting ECG HR:65 bpm ECG Measurements Heart Rate 65 AXES [place] 160 P 50 QRSd 90 QRS 75 QT 388 T 49 QTc 403 Conclusion Normal sinus rhythm Cannot rule out Anterior infarct, age undetermined Abnormal ECG Electronically signed by : Dom Cohen, 09/02/2020 16:47:27
[2020-09-02 11:45] VITALS: BP 134/89; PULSE 72; RESP 18; TEMP 36.7; O2SAT 98
== END 2020-09-02 11:50 | disposition home or self-care (01) ==
PROVIDERS: Emergency Provider Student in an Organized Health Care Education/Training Program; PCP Nurse Practitioner Family
DX: K62.5 Hemorrhage of anus and rectum (principal); K58.9 Irritable bowel syndrome, unspecified; R55 Syncope and collapse
CPT/HCPCS: 80053; 85025; 85610; 93005; 99282

== ENCOUNTER → 2021-03-20 15:27 | Outpatient (CLI) | payer MEDICAID, SELFPAY ==
[2021-03-20 17:12] VITALS: BMI 20.9
== END ==
PROVIDERS: PCP Nurse Practitioner Family; Visit Provider Physician Assistant
DX: Z11.1 Encounter for screening for respiratory tuberculosis (principal)
CPT/HCPCS: 86580

== ENCOUNTER → 2022-06-01 13:43 | Outpatient (CLI) | payer MEDICAID, SELFPAY | PROVIDERS: PCP Emergency Medicine; Visit Provider Nurse Practitioner | DX: Z87.19 Personal history of other diseases of the digestive system (principal) | CPT/HCPCS: 87045 ==

== ENCOUNTER 2022-06-16 08:11 | Day surgery (SDC) | payer MEDICAID, SELFPAY ==
[2022-06-14 08:30] VITALS: BMI 25.2
--- NOTE | 2022-06-16 08:30 | EXP.ANES.CKL ---
[facility] Disclaimer: The information contained in this section may have been updated after the patient was seen, as this information can be updated by other users. Medical History Abdominal pain Bipolar 1 disorder Bipolar depression Celiac disease Esophageal ulcer IBS (irritable bowel syndrome) Surgical History Abnormal colonoscopy delivery delivered H/O esophagogastroduodenoscopy Family History Grandmother Cancer, Onset Age: 65 Grandmother Cancer Grandmother Cancer, Onset Age: 50 Family/Other Leukemia Acute colitis Other Family history of myocardial infarction Family history of stroke Social History Smoking Status: Former smoker pack-years: 1 second hand exposure: No alcohol intake: never substance use type: marijuana current occupational status: unemployed Travel in the last 8 weeks: None household members: family housing: house lives independently: Yes marital status: single education level: high school service: No current occupation: HOUSE KEEPER AT [employer] current occupational exposures/hazards: No caffeine: No special eva needs: No agree to transfusion: No do you feel safe at home: Yes victim of physical abuse: No victim of emotional abuse: No victim of sexual abuse: No would you like helpful sources: No [facility] Anesthesia Checklist Patient Identification Patient Identification: Arm Band and Verbal (Name & ) Structural Data Admitted From: Home Planned Operative Procedure/s: EGD/Colonoscopy Consent for Planned Operative Procedure(s) Verified: Yes NPO Status Verified Time NPO: 00:00 Chart Verification Results Verified: HCG Additional verifications Anesthesia Reactions: No Hx Blood Transfusions: No Blood Transfusion Reaction: No Airway Assessment C-Spine Mobility Assessed: Yes TMJ Mobility Assessed: Yes Dentition: Good Dentition Neurological Assessment Level of Consciousness: Awake Hx Seizures: No Numbness or tingling in extremities: No Anesthesia Plan Anesthesia Risk discussed: Yes Anesthesia Plan: Verified ASA Class: II Anesthesia Type: MAC
[2022-06-16 08:38] LABS: Urine Pregnancy, HCG Qual. Negative (Negative)
[2022-06-16 08:48] VITALS: BP 139/81; PULSE 99; RESP 18; O2SAT 99
--- NOTE | 2022-06-16 08:56 | SUR.PREOP ---
Pt reported large, dark blood clots in stool. MD Huggins aware.
[2022-06-16 09:03] VITALS: O2SAT 97
[2022-06-16 09:25] VITALS: BP 87/50; PULSE 94; RESP 14; TEMP 36.3; O2SAT 96
--- NOTE | 2022-06-16 09:27 | HMH.SCOPE ---
Procedure: Date: 06/16/22 Patient Date of :: 1995 Procedure Performed:: EGD Indications:: The patient is a 26 year old with a history of celiac disease at age 16. She was previously managed thru [facility] pediatric gastroenterology. She reports maintaining a gluten free diet. She has had chronic diarrhea Performing Provider:: Shen Huggins MD Referring Provider:: Darci Jimenez MD Sedation:: See RN records Procedure:: The gastroscope was gently passed through the incisoral orifice into the oral cavity and under direct visualization the esophagus was intubated. The endoscope was passed down the esophagus, through the stomach, and into the duodenum. Color, texture, mucosa, and anatomy of the esophagus, stomach, and duodenum were carefully examined with the scope. Findings:: Oropharynx: normal Esophagus: normal EG Junction: intact at 40 cm Cardia: normal Fundus: normal Body: normal Antrum: normal Duodenal bulb: scalloped appearing mucosa. Multiple biopsies obtained Duodenum (second and third portion): normal. Multiple biopsies obtained Impression: Scalloped appearing duodnenal mucosa Recommendations:: Await pathology results Continue gluten free diet Move forward to colonoscopy for evaluation of diarrhea Complications:: None Estimated blood obtained (mL): 0
--- NOTE | 2022-06-16 09:30 | HMH.SCOPE ---
Procedure: Date: 06/16/22 Patient Date of :: 1995 Procedure Performed:: Colonoscopy Indications:: The patient is a 26 year old with chronic diarrhea. More recently she has experienced hematochezia. She relates a recent ER visit in [place] with CT scan of abdomen/pelvis that demonstrated colitis and ulcers. She was recently seen thru GI office visit and found to have salmonella by stool studies and she was treated with antibiotics last week. Performing Provider:: Shen Huggins MD Referring Provider:: Darci Jimenez MD Sedation:: See RN records Procedure:: After placing the patient in the left lateral decubitus position, the colonoscopy was gently inserted into the rectum and under direct visualization advanced to the cecum which was identified by transillumination in the right lower quadrant, identification of the ileocecal valve, appendiceal orifice, and cecal strap. Color, texture, mucosa, and anatomy of the colon were carefully examined with the scope. Findings:: Anal canal: normal Rectum: Two focal areas of non specific erythema within normal vascular pattern of the rectum. Biopsies obtained. Hemorrhoids Sigmoid colon: normal without polyps or inflammatory changes Descending colon: normal without polyps or inflammatory changes Splenic flexure: normal Transverse colon: normal without polyps or inflammatory changes Hepatic flexure: normal Ascending colon: normal without polyps or inflammatory changes Cecum: normal Terminal ileum: normal Impression: Focal areas of non specific erythema of rectum Normal appearing terminal ileum Normal appearing vascular pattern of the colon Random colon biopsies obtained to evaluate for microscopic (lymphocytic) colitis with patient's known history of celiac disease Recommendations:: Await pathology results Follow up in GI office Complications:: None Estimated blood obtained (mL): 0
[2022-06-16 09:35] VITALS: BP 90/50; PULSE 85; RESP 16; O2SAT 97
[2022-06-16 09:45] VITALS: BP 96/56; PULSE 72; RESP 16; O2SAT 100
[2022-06-16 09:55] VITALS: BP 117/78; PULSE 75; RESP 16; TEMP 36.7; O2SAT 100
== END 2022-06-16 10:05 | disposition home or self-care (01) ==
PROVIDERS: PCP Emergency Medicine; Visit Provider Internal Medicine
PROC: 0DJ08ZZ Inspection of Upper Intestinal Tract, Via Natural or Artificial Opening Endoscopic (ICD-10-PCS; CPT 43235; principal; 2022-06-16 09:00)
DX: K90.0 Celiac disease (principal); R19.7 Diarrhea, unspecified; K92.1 Melena; K64.8 Other hemorrhoids
CPT/HCPCS: 43239; 45380; 81025; J2704

== ENCOUNTER → 2022-06-25 13:10 | Outpatient (CLI) | payer MEDICAID, SELFPAY ==
[2022-06-25 18:10] LABS: Basophils % 0.4 % (0.1-2.0); Eosinophils # 0.2 K/mm3 (0.0-0.4); Eosinophils % 2.7 % (0.1-12.0); Hemoglobin 12.3 g/dL (12.2-16.2); Lymphocytes # 1.9 K/mm3 (0.7-4.5); Lymphocytes % 31.3 % (10-50); Mean Corpuscular HGB Conc 32.5 g/dL (31.8-35.4); Mean Corpuscular Hemoglobin 31.3 pg (27.0-31.2); Mean Corpuscular Volume 96.5 fl (81-99); Mean Platelet Volume 11.2 fl (7.4-10.4); Monocytes # 0.4 K/mm3 (0.1-1.0); Monocytes % 6.3 % (1.7-9.3); Neutrophils # 3.6 K/mm3 (1.8-7.8); Neutrophils % 59.4 % (37.0-80.0); Platelet Count 253 K/mm3 (142-424); Red Blood Count 3.94 M/mm3 (4.20-5.40); Red Cell Distribution Width 14.3 % (11.5-17.5)
[2022-06-25 18:13] LABS: Alanine Aminotransferase 16 U/L (12-78); Albumin Level 4.5 g/dl (3.5-5.0); Alkaline Phosphatase 64 U/L (38-126); Anion Gap 17.1 mEq/L (5-15); Aspartate Amino Transferase 23 U/L (14-36); Bilirubin,Total 0.2 mg/dl (0.2-1.3); Blood Urea Nitrogen 9 mg/dl (7-17); Calcium 9.1 mg/dl (8.4-10.2); Carbon Dioxide 24 mmol/L (22.0-30.0); Chloride 102 mmol/L (98-107); Chol/HDL Ratio 3.3 (1-3.5); Cholesterol 117 mg/dl (140-200); Estimated Glomerular Filt Rate 88 ml/min (>60); GFR (African American) 107 ML/MIN (>60); Globulin 2.3 g/dL (1.3-3.2); Glucose 95 mg/dl (74-100); HDL Cholesterol 36 mg/dl (40-60); Potassium 4.1 mmoL/L (3.5-5.1); Sodium 139 mmol/L (136-145); Total Protein,Serum 6.8 g/dl (6.3-8.2); Triglycerides 74 mg/dl (30-150); VLDL Cholesterol 15 mg/dL (0-40)
[2022-06-25 18:25] LABS: Direct LDL Cholesterol 75.13 mg/dL (100-129)
[2022-06-25 18:31] LABS: 25-OH Vitamin D, Total 31.2 ng/mL (30-100); T4 (Thyroxine) 6.6 ug/dl (5.53-11.0)
[2022-06-25 18:44] LABS: Thyroid Stimulating Hormone 1.44 uIU/mL (0.465-4.68)
[2022-06-25 19:03] LABS: Vitamin B12 237 pg/mL (239-931)
== END ==
PROVIDERS: PCP Emergency Medicine; Visit Provider Emergency Medicine
DX: K90.0 Celiac disease (principal)
CPT/HCPCS: 80053; 80061; 82306; 82607; 84436; 84443; 85025

== ENCOUNTER → 2022-09-08 14:28 | Outpatient (CLI) | payer MEDICAID, SELFPAY ==
--- NOTE | 2022-09-08 14:31 | CA_ITS ---
APPROVED REPORT EXAM: Comprehensive 2D, Doppler, and color-flow Echocardiogram Solar Pv Installer: Susi Dockery RT(R) Ht: 5 ft 6 in Wt: 145lbs BSA: 1.74 BP: 128/70 mmHg Indications: MVP, ex smoker, family history of HD, anxiety, syncope 2D Dimensions LVOT 1.82 cm (M/F) 1.5-2.5 LVEF (Dooley's) 61.60 % F: 54 - 74 LV Volume 88.60 mL F: 46 - 106 LV Volume Index 50.63 mL/m2 F: 29 - 61 M-Mode Dimensions RVDd 2.27 cm (0.9-2.6) LA Diam 2.92 cm (1.9-4.0) LVDd 4.66 cm (3.5-5.7) Ao Diam 2.61 cm (2.0-3.7) LVDs 3.63 cm (3.5-5.7) IVSd 0.65 cm (0.6-1.1) PWd 0.62 cm (0.6-1.1) EF (Teich) 44.70% FS 22.10% EDV (Teich) 100.30 mL ESV (Teich) 55.50 mL LV Diastology E Decel Time 207.00 (160-240 msec) E/A Ratio 1.6 MED E' 13.60 (< 7 cm/sec) E'/MED E' Ratio 7.58 (>14) LAT E' 19.60 (<10 cm/sec) E/LAT E' Ratio 5.26 (>14) Mitral Valve MV E Max Edward. 103.00 (40-130 cm/s) MV A Velocity 63.00 (40-130 cm/s) E/A Ratio 1.64 MV Decel. Time 207.00 (160-240 ms) MV PHT 61.00 ms Left Ventricle The left ventricle is normal size. The left ventricular systolic function is normal. The left ventricular ejection fraction is within the normal range. There is normal left ventricular wall thickness. There is normal LV segmental wall motion. The left ventricular diastolic function is normal. LVEF is 55%. Right Ventricle The right ventricle is mildly dilated. The right ventricular systolic function is normal. Atria The left atrium size is normal. The right atrium size is normal. There is no Doppler evidence of interatrial shunt. Aortic Valve The aortic valve opens well. There is no aortic valvular stenosis. No aortic regurgitation is present. Mitral Valve The mitral valve leaflets appear myxomatous. No evidence of mitral valve stenosis. Trace mitral valve regurgitation noted. There is mild bileaflet mitral valve prolapse. Tricuspid Valve The tricuspid valve leaflets are thin and pliable. Trace tricuspid regurgitation. RVSP is normal. Pulmonic Valve The pulmonary valve is normal in structure. Trace pulmonic regurgitation. Great Vessels The aortic root is normal in size. The ascending aorta is normal in size. IVC is normal in size and collapses >50% with inspiration. Pericardium There is no pericardial effusion. Other Information Study Quality: Adequate Conclusion Normal biventricular systolic function. Mild RV dilation. Mild bileaflet mitral valve prolapse. No evidence of significant valvular stenosis or regurgitation. Electronically signed by : Dahiana Guillen, 09/08/2022 19:57:49
== END ==
PROVIDERS: PCP Emergency Medicine; Visit Provider Emergency Medicine
DX: I34.1 Nonrheumatic mitral (valve) prolapse (principal)
CPT/HCPCS: 93306

== ENCOUNTER → 2022-10-22 14:20 | Outpatient (CLI) | payer MEDICAID, SELFPAY ==
[2022-10-22 18:44] LABS: Amphetamine/Metha Screen,Urine Negative ng/ml (<1000); Barbiturates Screen,Urine Negative ng/ml (<200)
[2022-10-22 18:45] LABS: Benzodiazepines Screen,Urine Negative ng/ml (<200); Cannabinoid Screen,Urine Positive ng/ml (<50)
[2022-10-22 18:46] LABS: Cocaine Screen,Urine Negative ng/ml (<300)
[2022-10-22 18:47] LABS: Methadone Screen,Urine Negative ng/ml (<300)
[2022-10-22 18:51] LABS: Opiate Screen,Urine Negative ng/ml (<300)
[2022-10-22 18:52] LABS: Phencyclidine Screen,Urine Negative ng/ml (<25)
== END ==
PROVIDERS: PCP Emergency Medicine; Visit Provider Emergency Medicine
DX: Z79.899 Other long term (current) drug therapy (principal)
CPT/HCPCS: 80305

== ENCOUNTER → 2023-01-04 14:25 | Outpatient (CLI) | payer MEDICAID, SELFPAY | LOC: RT 14:26 | PROVIDERS: PCP Physician Assistant; Visit Provider Physician Assistant | DX: R06.00 Dyspnea, unspecified (principal); R07.89 Other chest pain; R42 Dizziness and giddiness; R55 Syncope and collapse; I34.1 Nonrheumatic mitral (valve) prolapse | CPT/HCPCS: 93225 ==

== ENCOUNTER → 2023-01-06 15:12 | Outpatient (CLI) | payer MEDICAID, SELFPAY | PROVIDERS: PCP Physician Assistant; Visit Provider Nurse Practitioner | DX: R06.00 Dyspnea, unspecified (principal); R07.89 Other chest pain; R42 Dizziness and giddiness; R55 Syncope and collapse; I34.1 Nonrheumatic mitral (valve) prolapse | CPT/HCPCS: 93270 ==

== ENCOUNTER 2023-01-27 12:11 | Outpatient (CLI) | payer MEDICAID, SELFPAY ==
[2023-01-27] VITALS (12 sets, daily range): BP systolic 94–129; BP diastolic 49–79; PULSE 66–93; RESP 16–18; TEMP 36.6–37.4; O2SAT 97–100; BMI 24.0
--- NOTE | 2023-01-27 12:13 | CT_ITS ---
APPROVED REPORT Bike Assembler: CLINICAL INDICATION Chest Pain TECHNIQUE Image Acquisition: A 128 slice MDCT scanner (Doormana View) was used for data acquisition. A noncontrast coronary calcium scan was performed. A CT attenuation threshold of 130 Hounsfield units (HU) was used for the detection of calcium in contiguous voxels of 1 sq mm in area to be counted as individual lesions. Bolus tracking in the ascending aorta with a threshold of 180 HU was performed. Immediately afterwards, ECG synchronized cardiac CT was then performed from the cardiac base to apex using retrospective gating with ECG tube current modulation. A total of 85 mL of Isovue 370 mg/mL contrast medium was administered at 5 mL/sec followed by a saline flush using a biphasic injection protocol. A tube voltage of 120 KVp was used. The patient received the following medications prior to the cardiac CT. 100 mg of oral metoprolol 30 mg of intravenous metoprolol 0.8 mg of sublingual nitroglycerin The average heart rate at the time of acquisition was 81 bpm and regular. Image Reconstruction Transaxial images were reconstructed at 0.67 mm slide thickness. Data was reviewed interactively on an advanced workstation capable of 2 and 3-dimensional displays in all conventional reconstruction formats, including multiplanar reformations, maximum intensity projections, curved multiplanar reformations, and volume rendered reconstructions. When applicable, selected routine images describing the relevant coronary anatomy and pathology were saved and sent to PACS. Complications None Technical Quality Overall image quality was suboptimal due to elevated HR and motion, resulting in step artifact. Coronary artery opacification was fair. Total DLP (Dose-Length Product) is 1274.6 mGy-cm. The reported value represents the total of one or more individual components during the CT acquisition of this date and at this time, and as such, the same value may appear in more than one CT report depending on the interpreting/reporting physicians. COMPARISON None FINDINGS CT Coronary Calcium Scoring LMA (Left Main Artery) = 0 LAD (Left Anterior Descending) = 0 LCX (Left Coronary Circumflex) = 0 RCA (Right Coronary Artery) = 0 Total Calcium Score = 0 using the AJ-130 method. The interpretation of the calcium heart score is based on the following continuum*: 0 = no calcified plaque detected (risk of coronary artery disease is very low ??? less than 5%) 1-10 = calcium detected in extremely minimal levels (risk of coronary diseases is still low ??? less than 10%) 11-100 = mild levels of plaque detected with certainty (mild or minimal narrowing of heart arteries is likely) 101-400 = definite,at least moderate levels of plaque detected (relatively high risk of a heart attack within 3-5 years) >401-999 = extensive levels of plaque detected (high risk of heart attack, high levels of vascular disease are present, high likelihood of at least one significant coronary narrowing) *The calcium heart score quantifies the burden of coronary calcification/plaque in the coronary arteries. The calcium heart score is not able to evaluate the presence or burden of non-calcified (i.e. soft) plaque. There is no identifiable calcification in the aortic valve, mitral annulus or mitral valve, pericardium, or myocardium. Coronary CT Angiography The coronary arterial system is right dominant. Quantitative Stenosis Grading: Left Main (LM): The left main originates normally from the left sinus of Valsalva. The LM trifurcates into the left anterior descending artery and left circumflex artery. The LM is patent with no evidence of atherosclerosis. Left Anterior Descending (LAD) and Diagonal Branches: The LAD gives off 2 diagonal branches. The LAD and its branches are patent with no evidence of atherosclerosis. There is no evidence of LAD bridge. Ramus-intermedius (RI): The RI is patent. Left Circumflex (LCX) and Obtuse Marginals (OM): The LCX gives off 1 Obtuse Marginal (OM) branch. The LCX and its branches are patent with no evidence of atherosclerosis. Right Coronary Artery (RCA): The RCA originates normally from the right sinus of Valsalva. The RCA gives off a posterior descending artery (PDA) and posterolateral (PL) branches. The RCA and its branches are patent with no evidence of atherosclerosis. Non-Coronary Cardiac Findings: Analysis of the left ventricular (LV) structure and function was performed after 3-D reconstruction of the LV from axial images, with user-corrected automatic contouring for assessment of LV volumes and user-defined reconstruction from oblique planes for measurement of 3-D cardiac structure and function. LVEDV: 172 mL LVESV: 62 mL SV: 110 mL LVEF: 64.1 % -The left ventricle is normal in size with normal left ventricular systolic function. -There is no left atrial appendage filling defect. Two right pulmonary veins and two left pulmonary veins drain normally into the left atrium. -No pericardial thickening or calcification. -Central and branch pulmonary arteries in the [id number] are unremarkable. -Thoracic aorta within the visualized thoracic aortic-branches in the [id number] is unremarkable. Extracardiac Structures No significant extra-cardiac findings. IMPRESSION -Overall image quality was suboptimal due to elevated HR and motion, resulting in step artifact. -No coronary calcification with an Agatston score = 0 using the AJ-130 method. -No evidence of significant flow-limiting atherosclerosis of the coronary arteries. -No evidence of coronary anomalies or coronary bridges. -CAD-RADS 0. Management recommendations per ACC/AHA guidelines*, as clinically appropriate. -No significant non-coronary cardiac findings in the visualized segments of the chest. *Recommendations: CAD RADS 0: Reassurance. Consider non-atherosclerotic causes of chest pain. CAD RADS 1: Consider non-atherosclerotic causes of chest pain. Consider preventive therapy and risk factor modification. CAD RADS 2: Consider non-atherosclerotic causes of chest pain. Consider preventive therapy and risk factor modification, particularly for patients with nonobstructive plaque in multiple segments. CAD RADS 3: Consider further functional testing. Consider symptom-guided anti-ischemic and preventive pharmacotherapy as well as risk factor modification per published guideline statements. CAD RADS 4A: Consider further functional testing or invasive coronary angiography with revascularization per published guideline statements. Consider symptom-guided anti-ischemic and preventive pharmacotherapy as well as risk factor modification per published guideline statements. CAD RADS 4B: Invasive coronary angiography recommended with revascularization per published guideline statements. Consider symptom-guided anti-ischemic and preventive pharmacotherapy as well as risk factor modification per published guideline statements. CAD RADS 5: Consider invasive angiography and/or viability assessment with revascularization per published guideline statements. Consider symptom-guided anti-ischemic and preventive pharmacotherapy as well as risk factor modification per published guideline statements. CRITICAL RESULT None COMMUNICATION Per this written report The coronary and cardiac findings of this CCTA were reviewed, reported, and signed by Kaushik Guillen MD (Clinical Geneticist) Conclusion Electronically signed by : Dahiana Guillen MD 02/02/2023 13:22:47
[2023-01-27] MEDS: METOPROLOL TARTRATE 50MG TABLET 100 MG PO (12:35)
[2023-01-27 12:36] LABS: Urine Pregnancy, HCG Qual. Negative (Negative)
[2023-01-27 12:54] LABS: Chloride 104 mmol/L (98-107); Potassium 4.1 mmoL/L (3.5-5.1); Sodium 139 mmol/L (136-145)
[2023-01-27 12:57] LABS: Anion Gap 17.1 mEq/L (5-15); Blood Urea Nitrogen 10 mg/dl (7-17); Calcium 9.1 mg/dl (8.4-10.2); Carbon Dioxide 22 mmol/L (22.0-30.0); Creatinine Clearance Estimated 86 mL/min (50-200); Estimated Glomerular Filt Rate 68 ml/min (>60); GFR (African American) 82 ML/MIN (>60); Glucose 100 mg/dl (74-100)
[2023-01-27] MEDS: METOPROLOL TARTRATE 5MG/5ML VIAL 5 MG IV ×6 (13:34→14:50)
[2023-01-27] MEDS: NITROGLYCERIN 0.4MG SL TABLET 0.800000000000000044 MG SL (14:34)
[2023-01-27] MEDS: 0.9 % SODIUM CHLORIDE 50 ML VIAL IV (15:09)
[2023-01-27] MEDS: SODIUM CHLORIDE 0.9% 10ML SYR (RAD ONLY) 10 ML IV (15:09)
[2023-01-27] MEDS: IOPAMIDOL-370 (76%);100ML BOTTLE 100 ML IV (15:09)
== END 2023-01-27 15:50 | disposition home or self-care (01) ==
PROVIDERS: PCP Physician Assistant; Visit Provider Nurse Practitioner
DX: R07.89 Other chest pain (principal); R06.00 Dyspnea, unspecified; I34.1 Nonrheumatic mitral (valve) prolapse; R42 Dizziness and giddiness; R55 Syncope and collapse
CPT/HCPCS: 75571; 75574; 80048; 81025; Q9967

== ENCOUNTER 2023-02-23 09:38 | Outpatient (CLI) | payer MEDICAID, SELFPAY ==
--- NOTE | 2023-02-23 09:40 | MR_ITS ---
APPROVED REPORT Manager Mental Health: CLINICAL INDICATION Mitral valve prolapse, syncope, palpitations TECHNIQUE Image Acquisition: Cardiac magnetic resonance (CMR) was performed on Siemens Espree MRI 1.5T scanner. Software platform sequences were performed using the Siemens Ambrx MR B19 platform. A set of three-plane, low-resolution, large [id number] localizers were initially acquired. Then axial, coronal, sagittal TrueFISP, as well as axial HASTE images, were obtained. These were followed by gated TrueFISP breathold cinematic sequences obtained in the short axis with 8 mm slices and 2 mm gaps, 2-chamber (vertical long axis), 3-chamber, 4-chamber (horizontal long axis). A bolus of contrast was injected intravenously with first-pass sequences obtained in the short axis and four-chamber planes. After approximately 10 minutes, a TI vibration technician sequence was performed to determine the optimal TI time. Using the optimized TI time, delayed contrast enhancement segmented inversion???recovery TurboFLASH sequences were obtained in the short axis, 2-chamber, 3-chamber, and 4-chamber projections. 2D-velocity phase mapping was performed. Functional parameters were calculated by offline analysis on an independent workstation ([employer] Platform, CVIZipdial). Contrast: ProHance??? (Gadoteridol) FINDINGS MORPHOLOGY AND FUNCTION Left ventricle: The left ventricle is normal in size. The indexed left ventricular end-diastolic volume (LVEDVi) is 68 ml/m2 (reference range 57-105 ml/m2 in males, 56-96 ml/m2 in females). Normal left ventricular systolic function is present. There is normal left ventricular wall thickness. There are no regional wall motion abnormalities noted. LVEF is calculated at 64.3 % (reference range 57-77%). Right ventricle: The right ventricle is normal in size. The indexed right ventricular end-diastolic volume (RVEDVi) is 87 ml/m2 (reference range 61-121 ml/m2 in males, 48-112 ml/m2 in females). Normal right ventricular systolic function is present. RVEF is calculated at 54.6% (reference range 52-72% in males, 51-71% in females). Atria: The left atrium is normal in size. The maximum indexed left atrial volume is 31 ml/m2 (reference range 26-52 ml/m2 in males, 27-53 ml/m2 in females). The right atrium is normal in size. The maximum indexed right atrial volume is 20 ml/m2 (reference range 18-90 ml/m2). Aorta: The diameter of the aortic annulus is normal, measuring 22 mm (coronal view reference range 21-30 mm in males, 19-27 mm in females). The diameter of the aortic sinus is normal, measuring 26 mm (coronal view reference range 25-42 mm in males, 24-36 mm in females). The diameter of the sinotubular junction is normal, measuring 19 mm (coronal view reference range 18-32 mm in males, 18-28 mm in females). The diameters of the ascending and descending thoracic aorta are normal. Main pulmonary artery: The main pulmonary artery diameter is normal. Pericardium: The pericardial thickness is normal. The pericardial thickness measures 1.0 cm (normal < 4.0 cm). There is no pericardial effusion. VALVES There is borderline prolapse of the anterior mitral valve leaflet. No evidence of significant mitral regurgitation. No evidence of mitral annular disjunction (MAD). Systolic anterior motion of the mitral valve is not visualized. There is no significant valvular stenosis or regurgitation of the mitral, aortic, tricuspid, or pulmonic valve noted visually. Ratio of pulmonary to systemic flow, Qp:Qs ratio = 1.0 (normal < or = 1.2), demonstrating no evidence of hemodynamically significant shunt. TISSUE CHARACTERIZATION Resting Perfusion: Normal myocardial blood flow at rest. No evidence of resting hypoperfusion. Myocardial Fibrosis and/or edema: Normal gadolinium kinetics are present. No evidence of late gadolinium enhancement is noted, consistent with absence of myocardial scarring, infarction, or necrosis. T2-weighted imaging demonstrates no evidence of myocardial edema or inflammation. OTHER No other significant findings are noted. However, this exam is focused on the cardiac structure and function. IMPRESSION Normal LV size with normal LV systolic function. LVEDVi= 68 ml/m2 and LVEF= 64.3%. Normal RV size with normal RV systolic function. RVEDVi= 87 ml/m2 and RVEF= 54.6%. No atrial enlargement. Borderline prolapse of the anterior mitral valve leaflet. No evidence of significant mitral regurgitation. No evidence of mitral annular disjunction (MAD). No CMR evidence of myocardial scarring, infarction, or necrosis. No evidence of myocardial edema or inflammation. Perfusion analysis demonstrates normal blood flow at rest with no evidence of resting hypoperfusion. Ratio of pulmonary to systemic flow, Qp:Qs ratio = 1.0 (normal < or = 1.2), demonstrating no evidence of hemodynamically significant shunt. COMPARISON None CRITICAL RESULT None COMMUNICATION Per this written report The findings of this cardiac MR were reviewed, reported, and signed by Kauhsik Guillen MD (Nursing Education Consultant). Conclusion Electronically signed by : Dahiana Guillen MD 03/08/2023 10:44:24
[2023-02-23 10:06] LABS: Blood Urea Nitrogen 7 mg/dl (7-17); Estimated Glomerular Filt Rate 76 ml/min (>60); GFR (African American) 92 ML/MIN (>60)
[2023-02-23] MEDS: SODIUM CHLORIDE 0.9% 10ML SYR (RAD ONLY) 10 ML IV (11:37)
[2023-02-23] MEDS: GADOTERIDOL INJ 17ML SYRINGE 14 ML IV (11:37)
[2023-02-23] MEDS: SODIUM CHLORIDE 0.9% 50ML BAG 25 ML IV (11:38)
== END 2023-02-23 23:59 ==
LOC: RAD 09:39
PROVIDERS: PCP Physician Assistant; Visit Provider Internal Medicine
DX: R55 Syncope and collapse (principal); R00.2 Palpitations; I34.1 Nonrheumatic mitral (valve) prolapse
CPT/HCPCS: 36415; 75561; 82565; 84520; A9576

== ENCOUNTER 2023-04-07 09:38 | Day surgery (SDC) | payer MEDICAID, SELFPAY ==
[2023-04-07 09:56] VITALS: BP 143/94; PULSE 68; RESP 18; TEMP 36.7; O2SAT 100
--- NOTE | 2023-04-07 11:45 | P.PCN_ITS ---
Findings:: PROCEDURE: Tilt Table Test REQUESTING PHYSICIAN: Kaushik Guillen MD INDICATION: Symptomatic abnormal/inappropriate increase in heart rate upon standing BETA BLOCKERS: Withheld for 48 hours PRE-TEST VITAL SIGNS (supine position): HR 77 and sinus rhythm, BP 131/86, Oxygen saturation 100% PROCEDURE SUMMARY: patient was prepped per protocol, IV started, connected to heart, blood pressure and oxygen monitors and safety straps applied. She was then tilted upright at 75 degrees for a total of 25 minutes. The only symptom she had during the test was some tingling in her fingers after being upright for approximately 10 minutes. She denied having any dizziness, lightheadedness, near syncope or syncope. Her heart rate went up 31 bpm to a maximum of 108 bpm, immediately after being placed in the upright position. The remainder of the time that she was upright her HR was in the 80s and 90s. When she was first returned to the supine pos ition her HR decreased to 55 bpm for a short time. She remained in a sinus rhythm throughout the test. Her blood pressure increased to 146/97 (with a HR of 108) upon being placed upright, but 5 minutes later it was 126/88 (with a HR of 91 bpm). Her systolic BP stayed in the 120s and 130s and diastolic BP in the 80s and 90s for the remainder to her time upright. Blood pressure was 121/68 (HR 55 bpm) upon being returned to the supine position. Oxygen saturation was between 99 and 100% throughout. CONCLUSIONS: The patient had a 31 bpm elevation in heart rate upon standing, which meets the criteria for postural orthostatic tachycardia syndrome (POTS). However, she remained asymptomatic during today's test.
== END 2023-04-07 11:40 | disposition home or self-care (01) ==
PROVIDERS: PCP Physician Assistant; Visit Provider Internal Medicine
DX: R55 Syncope and collapse (principal); I34.1 Nonrheumatic mitral (valve) prolapse; R42 Dizziness and giddiness; G90.A Postural orthostatic tachycardia syndrome [POTS]
CPT/HCPCS: 93660

== ENCOUNTER 2023-06-08 14:48 | Outpatient (CLI) | payer MEDICAID, SELFPAY ==
[2023-06-08 15:30] LABS: Basophils # 0.1 K/mm3 (0-0.2); Basophils % 0.8 % (0.1-2.0); Eosinophils # 0.2 K/mm3 (0.0-0.4); Eosinophils % 2.8 % (0.1-12.0); Hematocrit 33.5 % (37.0-47.0); Hemoglobin 10.4 g/dL (12.2-16.2); Lymphocytes # 1.9 K/mm3 (0.7-4.5); Lymphocytes % 30.8 % (10-50); Mean Corpuscular Hemoglobin 24.9 pg (27.0-31.2); Mean Corpuscular Volume 80.5 fl (81-99); Mean Platelet Volume 10.1 fl (7.4-10.4); Monocytes # 0.4 K/mm3 (0.1-1.0); Neutrophils # 3.6 K/mm3 (1.8-7.8); Neutrophils % 59.6 % (37.0-80.0); Platelet Count 267 K/mm3 (142-424); Red Blood Count 4.16 M/mm3 (4.20-5.40); Red Cell Distribution Width 17.6 % (11.5-17.5); White Blood Count 6.1 K/mm3 (4.8-10.8)
[2023-06-08 15:52] LABS: Anion Gap 10.9 mEq/L (5-15); Blood Urea Nitrogen 10 mg/dl (7-17); Calcium 9.7 mg/dl (8.4-10.2); Carbon Dioxide 25 mmol/L (22.0-30.0); Chloride 108 mmol/L (98-107); Estimated Glomerular Filt Rate 76 ml/min (>60); GFR (African American) 92 ML/MIN (>60); Glucose 89 mg/dl (74-100); Potassium 3.9 mmoL/L (3.5-5.1); Sodium 140 mmol/L (136-145)
[2023-06-08 16:10] LABS: Free T4 (Free Thyroxine) 0.96 ng/dl (0.78-2.19)
[2023-06-08 16:24] LABS: Thyroid Stimulating Hormone 1.37 uIU/mL (0.465-4.68)
[2023-06-13 10:08] LABS: Antinuclear Antibodies, IFA Negative (.)
[2023-06-16 10:14] LABS: Dopamine, Plasma < 30 pg/mL (0-48); Epinephrine, Plasma 30 pg/mL (0-62); Norepinephrine, Plasma 426 pg/mL (0-874)
== END 2023-06-08 23:59 | disposition home or self-care (01) ==
LOC: LAB 14:49
PROVIDERS: PCP Physician Assistant; Visit Provider Internal Medicine
DX: R00.2 Palpitations (principal); R06.00 Dyspnea, unspecified; I47.11 Inappropriate sinus tachycardia, so stated; R07.89 Other chest pain; R42 Dizziness and giddiness; R55 Syncope and collapse; I34.1 Nonrheumatic mitral (valve) prolapse; G90.A Postural orthostatic tachycardia syndrome [POTS]
CPT/HCPCS: 36415; 80048; 82384; 82533; 83520; 84439; 84443; 84540; 85025; 86038

== ENCOUNTER 2023-09-15 13:24 | Outpatient (CLI) | payer MEDICAID, SELFPAY ==
[2023-09-15 13:54] LABS: Basophils # 0.1 K/mm3 (0-0.2); Basophils % 0.8 % (0.1-2.0); Eosinophils # 0.2 K/mm3 (0.0-0.4); Eosinophils % 3.4 % (0.1-12.0); Hematocrit 34.5 % (37.0-47.0); Hemoglobin 10.5 g/dL (12.2-16.2); Lymphocytes # 1.6 K/mm3 (0.7-4.5); Lymphocytes % 25.4 % (10-50); Mean Corpuscular HGB Conc 30.5 g/dL (31.8-35.4); Mean Corpuscular Hemoglobin 25.3 pg (27.0-31.2); Mean Corpuscular Volume 82.9 fl (81-99); Mean Platelet Volume 9.3 fl (7.4-10.4); Monocytes # 0.5 K/mm3 (0.1-1.0); Monocytes % 7.5 % (1.7-9.3); Neutrophils % 62.9 % (37.0-80.0); Platelet Count 302 K/mm3 (142-424); Red Blood Count 4.16 M/mm3 (4.20-5.40); Red Cell Distribution Width 16.4 % (11.5-17.5); White Blood Count 6.3 K/mm3 (4.8-10.8)
[2023-09-15 14:46] LABS: Alanine Aminotransferase 21 U/L (12-78); Albumin Level 4.1 g/dl (3.5-5.0); Albumin/Globulin Ratio 1.5 (1.1-1.8); Alkaline Phosphatase 66 U/L (38-126); Anion Gap 12.4 mEq/L (5-15); Aspartate Amino Transferase 21 U/L (14-36); Bilirubin,Total 0.4 mg/dl (0.2-1.3); Blood Urea Nitrogen 16 mg/dl (7-17); Calcium 9.3 mg/dl (8.4-10.2); Carbon Dioxide 24 mmol/L (22.0-30.0); Chloride 107 mmol/L (98-107); Estimated Glomerular Filt Rate 76 ml/min (>60); GFR (African American) 92 ML/MIN (>60); Globulin 2.7 g/dL (1.3-3.2); Glucose 101 mg/dl (74-100); Potassium 4.4 mmoL/L (3.5-5.1); Sodium 139 mmol/L (136-145); Total Protein,Serum 6.8 g/dl (6.3-8.2)
[2023-09-15 15:04] LABS: HCG,Quantitative < 2 mIU/ml (0-5.42)
== END 2023-09-15 23:59 | disposition home or self-care (01) ==
LOC: LAB 13:25
PROVIDERS: PCP Physician Assistant; Visit Provider Nurse Practitioner Obstetrics & Gynecology
DX: Z30.09 Encounter for other general counseling and advice on contraception (principal)
CPT/HCPCS: 36415; 80053; 84702; 85025

== ENCOUNTER 2023-09-19 06:52 | Day surgery (SDC) | payer MEDICAID, SELFPAY ==
[2023-09-19] VITALS (10 sets, daily range): BP systolic 114–156; BP diastolic 68–91; PULSE 64–106; RESP 16–18; TEMP 36.1–36.7; O2SAT 98–100; BMI 26.1
[2023-09-19] MEDS: LACTATED RINGERS 1000ML 1,000 ML 25 ML IV (07:22)
--- NOTE | 2023-09-19 07:53 | EXP.ANES.CKL ---
[facility] Disclaimer: The information contained in this section may have been updated after the patient was seen, as this information can be updated by other users. Medical History Mitral valve prolapse History of COVID-19 POTS (postural orthostatic tachycardia syndrome) Inappropriate sinus tachycardia Abdominal pain Bipolar 1 disorder Esophageal ulcer Bipolar depression IBS (irritable bowel syndrome) Celiac disease Surgical History H/O esophagogastroduodenoscopy Abnormal colonoscopy delivery delivered Family History Grandmother Cancer, Onset Age: 65 melanoma in lung by bx Grandmother , w/i 6 months of dx Cancer stomach cancer Grandmother Cancer, Onset Age: 50 colon CA Family/Other Leukemia Acute colitis Other Family history of myocardial infarction Family history of stroke Social History (Updated 09/19/23 @ 07:21 by Rosenda Lozada RN) Smoking Status: Current every day smoker tobacco type: e-cigarettes how long ago did patient quit smoking: she currently uses e-cigs second hand exposure: No alcohol intake: never counseling given: No substance use type: marijuana counseling given: No current occupational status: unemployed Travel in the last 8 weeks: Inside the [place] adopted: No caregiver/support person: Yes (for her daughter; she is 5 years old) foster care: No household members: significant other, family and children housing: house lives independently: Yes marital status: single number of children: 1 number of grandchildren: 0 education level: high school service: No current occupation: HOUSE KEEPER AT [employer] current occupational exposures/hazards: No Hx Recent Travel: No sexually active: Yes caffeine: Yes physical activity: none special eva needs: No agree to transfusion: No working smoke detector in home: Yes fire extinguisher in home: Yes carbon monox detector in home: Yes firearms in home: Yes firearms unloaded and locked: Yes do you feel safe at home: Yes victim of physical abuse: No victim of emotional abuse: No victim of sexual abuse: No would you like helpful sources: No [facility] Anesthesia Checklist Patient Identification Patient Identification: Verbal (Name & ) Structural Data Admitted From: Home Planned Operative Procedure/s: lap salpingectomy Consent for Planned Operative Procedure(s) Verified: Yes NPO Status Verified Time NPO: 00:00 Additional verifications Anesthesia Reactions: No Hx Blood Transfusions: Yes Blood Transfusion Reaction: No Airway Assessment Mallampati Score:: Class II C-Spine Mobility Assessed: Yes TMJ Mobility Assessed: Yes Dentition: Good Dentition Neurological Assessment Level of Consciousness: Awake, Alert and Appropriate Anesthesia Plan Anesthesia Risk discussed: Yes Anesthesia Plan: Verified ASA Class: II Anesthesia Type: General
[2023-09-19] MEDS: CEFAZOLIN SODIUM 2 GM in 0.9 % SODIUM CHLORIDE 100 ML IV (08:35)
[2023-09-19] MEDS: LIDOCAINE 1% W/EPI 1:100,000 20ML VIAL 20 ML (08:43)
[2023-09-19] MEDS: ROPIVACAINE 0.5% 30ML VIAL 300 MG (09:06)
--- NOTE | 2023-09-19 09:31 | P.OP_ITS ---
Date of procedure: 09/19/23 Pre-op Diagnosis:: Desire for sterilization. Removal of Nexplanon Post-op Diagnosis:: Desire for sterilization. Removal of Nexplanon Procedure performed:: Removal of Nexplanon, bilateral salpingectomy Surgeon:: Haresh Nina MD SALES AND LEASING AGENT:: Adriana Cadetivelisse Anesthesia: GETA Estimated blood loss (mL): 25 Clinical Note:: She is a 27-year-old lady who expressed desire for sterilization. The risk and benefits as well as the irreversibility of bilateral salpingectomy were discussed with the patient prior to surgery. She also had a Nexplanon inserted and wanted this removed at the time of her surgery. Operative findings:: She had an anteverted somewhat bulky uterus. The tubes and ovaries appeared normal. The left ovary had a 3 cm follicle. The rest the pelvis appeared normal. Operative note:: She was taken to the operating room where general anesthesia was found be adequate. She was prepped and draped in normal sterile fashion in the s emilithotomy position. Her left arm was cleaned and prepped in the normal sterile fashion. I then injected 5 cc of 1% Xylocaine with epinephrine. I made a small incision and was able to easily remove her device. A sterile dressing was applied. Estimated blood loss was less than 10 cc. A weighted speculum was placed in the vagina and the anterior lip of the cervix was grasped with a tenaculum. I then inserted a Fela uterine manipulator into the cervical os. The balloon was then insufflated. I changed gloves and injected 10 cc of 0.5% ropivacaine around her umbilicus and made a small incision within the umbilicus. I inserted a Veress needle into the abdominal cavity. The peritoneal cavity was then insufflated with carbon dioxide gas to a pressure of 20 mmHg. I then inserted a 5 millimeter trocar under direct vision. I injected through and through the pubic hairline, made a small incision here and inserted an 8 mm trocar under direct vision. I identified the inferior epigastric artery on the left side, went lateral to these and injected through and through. I then placed a 5 mm trocar here under direct vision. The pelvis and upper abdomen were then inspected and the fi ndings were as previously dictated. I grasped the right tube at the cornua and using harmonic scalpel on coagulation mode I cut through the tube. I then grasped the distal tube and using harmonic scalpel cut along the mesosalpinx. The tube was removed through 8 mm trocar site. This was similarly performed on the patient's left side. I then injected 30 cc of 0.5% ropivacaine into the pelvis. After assuring hemostasis the gas was let out of the abdomen and hemostasis was once again assured. The abdomen was then reinsufflated. The secondary trochars were removed under direct vision. The gas was let out her abdomen. The primary trocar was then removed. The 8 mm trocar site was closed deeply with 2-0 Vicryl suture followed by subcuticular 4-0 Monocryl suture. The 5 mm trocar sites were closed with subcuticular 4-0 Monocryl. Sterile dressings were applied. The patient tolerated the procedure well and was taken to the recovery room in excellent condition. All sponge instrument and needle counts were correct. The estimated blood loss was less than 25 cc. Condition: stable Disposition: PACU Specimens:: Bilateral fallopian tubes Complications:: None
--- NOTE | 2023-09-19 09:39 | P.PNANES_ITS ---
[facility] Anesthesia Record Part I Anesthesia Record I Intake, IV Amount: 900 Hydration: Adequate Estimated blood loss (mL): 25 Urine output (mL): 100 Blood Products used (#): none Blood Pressure: 136/91 SaO2: 98 Pulse Rate: 106 Airway Patency: Patent Respiratory Rate: 16 Temperature: 97.0 F Patient is:: Awake (Talking) Stable to PACU at:: 09:40
--- NOTE | 2023-09-19 13:07 | P.PNANES_ITS ---
[facility] Anesthesia Record Part II Anesthesia Record Part II Discharge Time: 10:05 Destination: Surgical Day Care (OP Surgery) PACU nurse assessment reviewed?: Yes Patient Condition:: Good Anesthesia Complications:: None Swallowing reflex intact?: Yes Airway Patency: Patent Cyanosis?: No Blood Pressure: 144/89 SaO2: 98 Respiratory Rate: 16 Pulse Rate: 75 Temperature: 97.0 F Mental Status: Alert & Oriented Pain level:: 0 Nausea and/or vomitting:: None Intake, IV Amount: 900 Hydration: Adequate
== END 2023-09-19 10:49 | disposition home or self-care (01) ==
PROVIDERS: PCP Physician Assistant; Visit Provider Nurse Practitioner Obstetrics & Gynecology
PROC: (CPT 58661; principal; 2023-09-19 08:30)
DX: Z30.2 Encounter for sterilization (principal); Z30.46 Encounter for surveillance of implantable subdermal contraceptive
CPT/HCPCS: 58661; 11982; 96374; J3490; J0690; J1100; J1885; J2250; J2405; J3010; J7120